=== PATIENT | female | born 1960 | race Hispanic/Latino ===

== ENCOUNTER 2017-06-25 11:19 | Emergency (ER) | payer OTHER ==
--- NOTE | 2017-06-25 12:06 | ER ---
Nurse's Notes [facility] Name: Sally Beebe Age: 57 yrs Sex: Female : 1960 Arrival Date: 06/25/2017 Time: 11:21 Bed 13 Private MD: Peng Sheldon B Diagnosis: Hypoglycemia, unspecified Presentation: 06/25 11:25 Presenting complaint: Patient states: Reports low sugar reading over past week after aj being put on insulin. Patient reports reading of 78 this morning, 112 now. Transition of care: patient was not received from another setting of care. Onset of symptoms was June 18, 2017. Care prior to arrival: None. 11:25 Method Of Arrival: Ambulatory aj 11:25 Acuity: ERICA 3 aj 12:04 Initial Sepsis Screen: Does the patient meet any 2 criteria? No. Patient's initial hj sepsis screen is negative. Does the patient have a suspected source of infection? No. Patient's initial sepsis screen is negative. Triage Assessment: 11:29 General: Appears in no apparent distress. comfortable, Behavior is calm, cooperative, aj appropriate for age. Pain: Denies pain. Neuro: Level of Consciousness is awake, alert, obeys commands, Oriented to person, place, time, situation, Appropriate for age. Respiratory: Airway is patent Respiratory effort is even, labored, Respiratory pattern is regular, symmetrical. Derm: Skin is intact, is healthy with good turgor, Skin is pink, warm \T\ dry. normal. Historical: - Allergies: 11:29 No Known Allergies; aj - Home Meds: 11:29 Tresiba FlexTouch U-200 200 unit/mL (3 mL) subcutaneous inpn [Active]; Victoza 3-Keaton aj 0.6 mg/0.1 mL (18 mg/3 mL) subcutaneous pnij 0.2 mL once daily [Active]; repaglinide 1 mg oral tab 1 tab 2 times per day [Active]; atorvastatin oral oral [Active]; Metformin Oral [Active]; - PMHx: 11:29 Diabetes - IDDM; Hyperlipidemia; aj - Immunization history:: Adult Immunizations up to date. - Social history:: Smoking status: Patient/guardian denies using tobacco. - Family history:: not pertinent. - Hospitalizations: : No recent hospitalization is reported. Screenin:02 Abuse screen: Denies threats or abuse. Denies injuries from another. Nutritional hj screening: No deficits noted. Tuberculosis screening: No symptoms or risk factors identified. Fall Risk None identified. Assessment: 12:06 General: Appears in no apparent distress. uncomfortable, Behavior is calm, cooperative, hj appropriate for age. Pain: Denies pain. Neuro: Level of Consciousness is awake, alert, obeys commands, Oriented to person, place, time, situation, Appropriate for age. Cardiovascular: Capillary refill < 3 seconds Patient's skin is warm and dry. Respiratory: Airway is patent Respiratory effort is even, unlabored, Respiratory pattern is regular, symmetrical. GI: No signs and/or symptoms were reported involving the gastrointestinal system. : No signs and/or symptoms were reported regarding the genitourinary system. EENT: No signs and/or symptoms were reported regarding the EENT system. Derm: No signs and/or symptoms reported regarding the dermatologic system. Musculoskeletal: No signs and/or symptoms reported regarding the musculoskeletal system. 12:07 Reassessment: pt left before signing the paper works;. hj Vital Signs: 11:29 BP 177 / 76; Pulse 72; Resp 18; Temp 98.2; Pulse Ox 100% on R/A; Weight 72.57 kg; aj Height 5 ft. 2 in. (157.48 cm); 11:29 Body Mass Index 29.26 (72.57 kg, 157.48 cm) aj ED Course: 11:21 Patient arrived in ED. mr 11:21 Peng Sheldon MD is Private Physician. mr 11:25 Ernesto Garcia MD is Attending Physician. rn 11:27 Triage completed. aj 11:29 Arm band placed on right wrist. Patient placed in an exam room. aj 11:31 David Serra, YASMIN is Primary Nurse. hj 12:03 No provider procedures requiring assistance completed. Patient did not have IV access hj during this emergency room visit. 12:04 Patient has correct armband on for positive identification. Placed in gown. Bed in low hj position. Call light in reach. Side rails up X 1. Administered Medications: No medications were administered Outcome: 12:03 Discharged to home ambulatory. hj 12:03 Condition: stable 12:03 Discharge instructions given to patient, family, Instructed on discharge instructions, follow up and referral plans. Demonstrated understanding of instructions, follow-up care. 12:05 Discharge ordered by MD. ugalde 12:15 Patient left the ED. hj Signatures: Brittany Brown RN RN aj Rivera, Maria mr Nieto, Roman, MD MD rn Joaquin, Henry, RN RN hj
--- NOTE | 2017-06-25 12:06 | EDPHYS ---
Physician Documentation [facility] Name: Sally Beebe Age: 57 yrs Sex: Female : 1960 Arrival Date: 06/25/2017 Time: 11:21 Bed 13 Private MD: Peng Sheldon B ED Physician Ernesto Garcia HPI: 06/25 11:57 This 57 yrs old Female presents to ER via Ambulatory with complaints of Low rn Blood Sugar. 11:57 Onset: The symptoms/episode began/occurred 1 week(s) ago. Associated signs and rn symptoms: Pertinent positives:. Current symptoms: In the emergency department the patient's symptoms have improved. The patient has experienced similar episodes in the past. Reports diabetic for 8 years, just started on insulin 1 week ago, reports intermittent low blood sugar, states no syncope but some sugars have gone down to 50s, told to start on 20u. . Historical: - Allergies: 11:29 No Known Allergies; aj - Home Meds: 11:29 Tresiba FlexTouch U-200 200 unit/mL (3 mL) subcutaneous inpn [Active]; Victoza 3-Keaton aj 0.6 mg/0.1 mL (18 mg/3 mL) subcutaneous pnij 0.2 mL once daily [Active]; repaglinide 1 mg oral tab 1 tab 2 times per day [Active]; atorvastatin oral oral [Active]; Metformin Oral [Active]; - PMHx: 11:29 Diabetes - IDDM; Hyperlipidemia; aj - Immunization history:: Adult Immunizations up to date. - Social history:: Smoking status: Patient/guardian denies using tobacco. - Family history:: not pertinent. - Hospitalizations: : No recent hospitalization is reported. ROS: 11:57 Constitutional: Negative for fever, chills, and weight loss, Eyes: Negative for injury, rn pain, redness, and discharge, Cardiovascular: Negative for chest pain, palpitations, and edema, Respiratory: Negative for shortness of breath, cough, wheezing, and pleuritic chest pain, Abdomen/GI: Negative for abdominal pain, nausea, vomiting, diarrhea, and constipation, MS/Extremity: Negative for injury and deformity, Skin: Negative for injury, rash, and discoloration, Neuro: Negative for headache, weakness, numbness, tingling, and seizure. Exam: 11:57 Constitutional: This is a well developed, well nourished patient who is awake, alert, rn and in no acute distress. Head/Face: Normocephalic, atraumatic. Neuro: Awake and alert, GCS 15, oriented to person, place, time, and situation. Cranial nerves II-XII grossly intact. Motor strength 5/5 in all extremities. Sensory grossly intact. Cerebellar exam normal. Normal gait. Vital Signs: 11:29 BP 177 / 76; Pulse 72; Resp 18; Temp 98.2; Pulse Ox 100% on R/A; Weight 72.57 kg; aj Height 5 ft. 2 in. (157.48 cm); 11:29 Body Mass Index 29.26 (72.57 kg, 157.48 cm) aj MDM: 11:25 Patient medically screened. rn 11:57 Differential diagnosis: hypoglycemic episode. Data reviewed: vital signs, nurses notes, [employer] test result(s), finger stick glucose, and as a result, I will discharge patient. Counseling: I had a detailed discussion with the patient and/or guardian regarding: the historical points, exam findings, and any diagnostic results supporting the discharge/admit diagnosis, lab results, the need for outpatient follow up, to return to the emergency department if symptoms worsen or persist or if there are any questions or concerns that arise at home. Special discussion: I discussed with the patient/guardian in detail that at this point there is no indication for admission to the hospital. It is understood, however, that if the symptoms persist or worsen the patient needs to return immediately for re-evaluation. Based on the history and exam findings, there is no indication for further emergent testing or inpatient evaluation. Endocrine. ED course: Recommended cutting insulin down to 10u and f/u with endocrine/pcp. 06/25 11:49 Order name: Urine Dipstick--Ancillary (enter results) bd Administered Medications: No medications were administered Disposition: 06/25/17 12:05 Discharged to Home as Medical Screen. Impression: Hypoglycemia, unspecified. - Condition is Stable. - Discharge Instructions: Hypoglycemia. - Medication Reconciliation Form, Thank You Letter, Antibiotic Education, Prescription Opioid Use form. - Follow up: Private Physician; When: As needed; Reason: Recheck today's complaints, Re-evaluation by your physician. - Problem is new. - Symptoms have improved. Signatures: Dispatcher [employer] EDBrittany Davis RN Ernesto Chávez MD MD rn Joaquin, Henry, RN RN hj Corrections: (The following items were deleted from the chart) 12:05 12:05 06/25/2017 12:05 Discharged to Home. Impression: Hypoglycemia, unspecified. rn Condition is Stable. Forms are Medication Reconciliation Form, Thank You Letter, Antibiotic Education, Prescription Opioid Use. Follow up: Private Physician; When: As needed; Reason: Recheck today's complaints, Re-evaluation by your physician. Problem is new. Symptoms have improved. rn 12:15 12:05 06/25/2017 12:05 Discharged to Home as Medical Screen. Impression: Hypoglycemia, hj unspecified. Condition is Stable. Discharge Instructions: Hypoglycemia. Forms are Medication Reconciliation Form, Thank You Letter, Antibiotic Education, Prescription Opioid Use. Follow up: Private Physician; When: As needed; Reason: Recheck today's complaints, Re-evaluation by your physician. Problem is new. Symptoms have improved. rn
[2017-06-25 12:20] VITALS: BP 177/76; TEMP 98.2; O2SAT 100
[2017-06-25 15:00] LABS: Urine Blood NEGATIVE (NEG); Urine Glucose NEGATIVE (NEG); Urine Protein NEGATIVE (NEG); Urine Specific Gravity 1.015 (1.005-1.030)
== END 2017-06-25 12:15 | disposition home or self-care (01) ==
LOC: ER 11:19
DX: E11.649 Type 2 diabetes mellitus with hypoglycemia without coma (principal); E78.5 Hyperlipidemia, unspecified; Z79.4 Long term (current) use of insulin
CPT/HCPCS: 81003; 99281

== ENCOUNTER 2018-01-22 17:07 | Emergency (ER) | payer OTHER ==
--- OUTSIDE RECORDS SUMMARY | 2018-01-22 17:10 | XMS REPORT | Clinical Summary ---
:1960 Author Organization [facility] Address [address] [place] [address] Care Team Providers Name Role Phone Flores Ross MD Primary Care Provider Allergies No Known Allergies Medications Medication Sig Dispensed Refills Start Date End Date Status cyanocobalamin, Take by mouth. 0 Active vitamin B-12, 2,500 mcg tablet betamethasone Apply topically 45 g 1 08/20/2017 Active valerate (VALISONE) 2 (two) times a 9 0.1 % day. creamIndications: Acute eczema VICTOZA 3-ALONDRA 0.6 Inject 0.3 mL 12 pen 1 11/30/2017 Active mg/0.1 mL (18 mg/3 (1.8 mg total) mL) pen under the skin injectorIndications: daily with Type 2 diabetes breakfast. mellitus without Inject 1.8 mg complication, once a day without long-term current use of insulin (HCC) metFORMIN XR Take 1 tablet 90 tablet 1 11/30/2017 Active (GLUCOPHAGE-XR) 500 (500 mg total) mg 24 hr by mouth daily tabletIndications: with breakfast. Type 2 diabetes 2 tablet twice mellitus without a day complication, without long-term current use of insulin (HCC) losartan (COZAAR) Take 1 tablet 90 tablet 1 11/30/2017 Active 100 MG (100 mg total) tabletIndications: by mouth daily. HTN (hypertension), 1/2 tablet once benign a day atorvastatin Take 1 tablet 90 tablet 1 11/30/2017 Active (LIPITOR) 80 MG (80 mg total) tabletIndications: by mouth Mixed hyperlipidemia nightly. 1 tablet once a day VICTOZA 3-ALONDRA 0.6 Inject 1.8 mg 3 05/19/2017 10/22/201 Discontinued mg/0.1 mL (18 mg/3 once a day 8 mL) pen injector metFORMIN XR Take by mouth. 1 06/03/2017 Discontinued (GLUCOPHAGE-XR) 500 2 tablet twice 8 mg 24 hr tablet a day repaglinide Take by mouth. 0 Discontinued (PRANDIN) 1 MG 1 tablet twice 8 tablet a day losartan (COZAAR) Take by mouth. 0 Discontinued 100 MG tablet 1/2 tablet once 8 a day atorvastatin Take by mouth. 0 Discontinued (LIPITOR) 80 MG 1 tablet once a 8 tablet day Active Problems Problem Noted Date Class 1 obesity due to excess calories with serious comorbidity and body 09/30 mass index (BMI) of 30.0 to 30.9 in adult H/O mammogram 2016 nle 09/19/2017 Atrophic gastritis without hemorrhage no H pylori 2016 09/19/2017 Colitis 08/07/2017 Type 2 diabetes mellitus without complication, without long-term current 07/17 use of insulin Mixed hyperlipidemia 07/17/2017 HTN (hypertension), benign 07/17/2017 Drug intolerance SGLT2 :yeast intolerance 07/17/2017 Family history of stroke Mother 07/17/2017 Family history of heart disease Mother 07/17/2017 Family history of breast cancer sister 07/17/2017 History of stroke 07/17/2017 Overview: Was on plavix ,now off ,was advised only to take ASA 81 mg H/O benign breast biopsy 07/17/2017 Status post colonoscopy 2016 Repeat in 10 years no polyps 07/17/2017 Tinnitus of both ears 07/17/2017 History of Helicobacter pylori infection 07/15/2017 Mixed conductive and sensorineural hearing loss of both ears 07/15/2017 Encounters Date Type Specialty Care Team Description 11/30/2017 Lab Lab Flores Ross, Annual physical exam 11/30/2017 Office Visit Internal Medicine Flores Ross, Annual physical exam (Primary Dx); Need for immunization against influenza; Type 2 diabetes mellitus without complication, without long-term current use of insulin (HCC); Mixed hyperlipidemia; HTN (hypertension), benign 09/30/2017 Office Visit Internal Medicine Flores Ross, Skin lesion of right lower extremity (Primary Dx); Class 1 obesity due to excess calories with serious comorbidity and body mass index (BMI) of 30.0 to 30.9 in adult; Type 2 diabetes mellitus without complication, without long-term current use of insulin; HTN (hypertension), benign; Mixed hyperlipidemia 08/26/2017 Orders Only Internal Medicine Travis Ulloa MD 08/20/2017 Office Visit Internal Medicine Vandana Flores, Type 2 diabetes mellitus without complication, without long-term current use of insulin (Primary Dx); HTN (hypertension), benign; Mixed hyperlipidemia; Acute eczema 08/14/2017 Orders Only Internal Medicine ProviderTravis MD 08/07/2017 Orders Only Internal Medicine Travis Ulloa, 07/15/2017 Lab Lab Vandana Flores, Type 2 diabetes mellitus with hyperglycemia, without long-term current use of insulin; HTN (hypertension), benign; Mixed hyperlipidemia 07/15/2017 Office Visit Internal Medicine Flores Ross, Type 2 diabetes mellitus with hyperglycemia, without long-term current use of insulin ( Primary Dx); Mixed hyperlipidemia; HTN (hypertension), benign; History of stroke 07/15/2017 Orders Only Internal Medicine ProviderTravis MD after 01/21/2017 Immunizations Name Dates Previously Given Next Due SD NEW PF 11/30/2017 Family History Medical History Relation Name Comments Lymphoma Father Heart disease Mother pacemaker Stroke Mother Breast cancer Sister Relation Name Status Comments Father Maternal Grandfather Maternal Grandmother Mother (Age 86) Paternal Grandfather Paternal Grandmother Sister Alive Social History Tobacco Use Types Packs/Day Years Used Date Never Smoker Smokeless Tobacco: Never Used Tobacco Cessation: Counseling Given: No Alcohol Use Drinks/Week oz/Week Comments No Sex Assigned at Date Recorded Not on file Job Start Date Occupation Industry Not on file Not on file Not on file Travel History Travel Start Travel End No recent travel history available. Last Filed Vital Signs Vital Sign Reading Time Taken Blood Pressure 118/75 11/30/2017 8:27 AM CDT Pulse 68 11/30/2017 8:27 AM CDT Temperature 36.8 C (98.2 F) 11/30/2017 8:27 AM CDT Respiratory Rate - - Oxygen Saturation 97% 11/30/2017 8:27 AM CDT Inhaled Oxygen Concentration - - Weight 78.1 kg (172 lb 3.2 oz) 11/30/2017 8:27 AM CDT Height 160 cm (5' 3") 11/30/2017 8:27 AM CDT Body Mass Index 30.5 11/30/2017 8:27 AM CDT Plan of Treatment Date Type Specialty Care Team Description 03/01/2018 Office Visit Internal Medicine Flores Ross MD [address] [facility] [address] [place] [address] [phone] Health Maintenance Due Date Last Done Comments DIABETIC RETINAL EYE EXAM 07/16/2017 07/16/2016 DIABETIC FOOT EXAM 07/15/2018 07/15/2017 URINE MICROALBUMIN 07/15/2018 07/15/2017, 07/15/2017 SHINGLES VACCINES (1 of 2) 07/20/2018 Postponed from 2009 (Insurance / Financial) BREAST CANCER SCREENING 12/10/2018 12/10/2016 CERVICAL CANCER SCREENING 10/11/2019 10/10/2016 COLON CANCER SCREENING 02/09/2025 02/09/2015 INFLUENZA VACCINE Completed 11/30/2017 Procedures Procedure Name Priority Date/Time Associated Diagnosis Comments LIPID PANEL Routine 11/30/2017 9:23 Annual physical exam Results for this AM CDT procedure are in the results section. HEMOGLOBIN A1C Routine 11/30/2017 9:23 Annual physical exam Results for this AM CDT procedure are in the results section. OBTAIN MEDICAL Routine 08/26/2017 RECORDS MISCELLANSOUS IMAGING Routine 08/14/2017 RESULT COLONOSCOPY-EXTERNAL Routine 08/07/2017 OBTAIN MEDICAL Routine 08/07/2017 RECORDS THYROID STIMULATING Routine 07/15/2017 12:24 Type 2 diabetes Results for this HORMONE PM CDT mellitus with procedure are in hyperglycemia, without the results long-term current use section. of insulin Mixed hyperlipidemia MICROALBUMIN / Routine 07/15/2017 12:24 Type 2 diabetes Results for this CREATININE URINE PM CDT mellitus with procedure are in RATIO hyperglycemia, without the results long-term current use section. of insulin HTN (hypertension), benign LIPID PANEL Routine 07/15/2017 12:24 Type 2 diabetes Results for this PM CDT mellitus with procedure are in hyperglycemia, without the results long-term current use section. of insulin Mixed hyperlipidemia HEMOGLOBIN A1C Routine 07/15/2017 12:24 Type 2 diabetes Results for this PM CDT mellitus with procedure are in hyperglycemia, without the results long-term current use section. of insulin COMPREHENSIVE Routine 07/15/2017 12:24 Type 2 diabetes Results for this METABOLIC PANEL PM CDT mellitus with procedure are in hyperglycemia, without the results long-term current use section. of insulin HTN (hypertension), benign CBC HEMOGRAM Routine 07/15/2017 12:24 Type 2 diabetes Results for this PM CDT mellitus with procedure are in hyperglycemia, without the results long-term current use section. of insulin HTN (hypertension), benign OBTAIN MEDICAL Routine 07/15/2017 RECORDS after 01/21/2017 Results Hemoglobin A1c (11/30/2017 9:23 AM CDT)Only the most recent of2 resultswithin the time period is included. Hemoglobin A1C 7.2 (H) <5.7 % of total [facility] Comment: Hgb [place] For someone without known diabetes, a hemoglobin A1c value of 6.5% or greater indicates that they may have diabetes and this should be confirmed with a follow-up test. For someone with known diabetes, a value <7% indicates that their diabetes is well controlled and a value greater than or equal to 7% indicates suboptimal control. A1c targets should be individualized based on duration of diabetes, age, comorbid conditions, and other considerations. Currently, no consensus exists regarding use of hemoglobin A1c for diagnosis of diabetes for children. Specimen Blood Resulting Agency Comment Performing Organization Information: Site ID: [id number] Name: [facility] Lab Address: [address] [place] [phone] Director: Pippa Sinha Performing Organization Address City/State/Zipcode Phone Number [facility] [address] [address] Lipid panel (11/30/2017 9:23 AM CDT)Only the most recent of2 resultswithin the time period is included. Cholesterol, total 167 <200 mg/dL [facility] [place] HDL cholesterol 53 >50 mg/dL [facility] [place] Triglycerides 110 <150 mg/dL [facility] [place] LDL cholesterol 93 mg/dL (calc) [facility] calculated Comment: [place] Reference range: <100 Desirable range <100 mg/dL for primary prevention; <70 mg/dL for patients with CHD or diabetic patients with > or=2 CHD risk factors. LDL-C is now calculated using the Santana-Aguirre calculation, which is a validated novel method providing better accuracy than the Friedewald equation in the estimation of LDL-C. Santana SS et al. JUDSON. 2013;310(19): 7460-2832 (http://education.[employer]/faq/SJC098) Cholesterol/HDL ratio 3.2 <5.0 (calc) [facility] [place] Non-HDL cholesterol 114 <130 mg/dL [facility] Comment: (calc) [place] For patients with diabetes plus 1 major ASCVD risk factor, treating to a non-HDL-C goal of <100 mg/dL (LDL-C of <70 mg/dL) is considered a therapeutic option. Specimen Blood Resulting Agency Comment Performing Organization Information: Site ID: [id number] Name: [facility] Lab Address: [address] [place] [phone] Director: Pippa Sinha Performing Organization Address City/State/Zipcode Phone Number [facility] [address] [place], [place] [id number] Obtain medical records (08/26/2017)Only the most recent of3 resultswithin the time period is included. Narrative Performed At Miscellaneous Imaging Result (08/14/2017) Specimen Blood Narrative Performed At COLONOSCOPY-EXTERNAL (08/07/2017) Narrative Performed At Microalbumin / creatinine urine ratio (07/15/2017 12:24 PM CDT) Creatinine, urine, 114 20 - 320 mg/dL [facility] Microalbumin, urine <0.2 See Note: mg/dL [facility] Comment: [place] Reference Range: Reference Range Not established Microalbumin/creatini NOTE <30 mcg/mg creat [facility] ne ratio Comment: [place] The microalbumin value is less than 0.2 mg/dL therefore we are unable to calculate excretion and/or creatinine ratio. The ADA defines abnormalities in albumin excretion as follows: Category Result (mcg/mg creatinine) Normal<30 Microalbuminuria 30-299 Clinical albuminuria > YR=164 The ADA recommends that at least two of three specimens collected within a 3-6 month period be abnormal before considering a patient to be within a diagnostic category. Specimen Blood Resulting Agency Comment Performing Organization Information: Site ID: [id number] Name: [facility] Lab Address: [address] [place] [phone] Director: Pippa Sinha Performing Organization Address City/[facility] [email or web address] Phone [place] [address] CBC hemogram (07/15/2017 12:24 PM CDT) WBC 5.2 3.8 - 10.8 Thousand/uL [facility] [place] RBC 4.34 3.80 - 5.10 Million/uL [facility] [place] HGB 14.0 11.7 - 15.5 g/dL [facility] [place] HCT 40.5 35.0 - 45.0 % [facility] [place] MCV 93.3 80.0 - 100.0 fL [facility] [place] MCH 32.3 27.0 - 33.0 pg [facility] [place] MCHC 34.6 32.0 - 36.0 g/dL [facility] [place] RDW 12.7 11.0 - 15.0 % [facility] [place] Platelet count 267 140 - 400 Thousand/uL [facility] [place] MPV 10.3 7.5 - 12.5 fL [facility] [place] Specimen Blood Resulting Agency Comment Performing Organization Information: Site ID: [id number] Name: [facility] Lab Address: [address] [place] [phone] Director: Pippa Sinha Performing Organization Address [facility] Phone [place] [address] Thyroid stimulating hormone (07/15/2017 12:24 PM CDT) TSH 1.90 0.40 - 4.50 mIU/L [facility] [place] Specimen Blood Resulting Agency Comment Performing Organization Information: Site ID: [id number] Name: [facility] Address: [address] [place] [phone] Director: Pippa Sinha Performing Organization Address [facility] [email or web address] Phone [place] [address] Comprehensive metabolic panel (07/15/2017 12:24 PM CDT) Glucose 95 65 - 99 mg/dL [facility] Comment: [place] Fasting reference interval BUN, whole blood 13 7 - 25 mg/dL [facility] [place] Creatinine 0.58 0.50 - 1.05 [facility] Comment: mg/dL [place] For patients >49 years of age, the reference limit for Creatinine is approximately 13% higher for people identified as -Luxembourger. EGFR Non-Afr. Luxembourger 102 > OR=60 [facility] mL/min/1.73m2 [place] EGFR 118 > OR=60 [facility] mL/min/1.73m2 [place] BUN/creatinine ratio NOT APPLICABLE 6 - 22 (calc) [facility] [place] Sodium 141 135 - 146 mmol/L [facility] [place] Potassium 4.7 3.5 - 5.3 mmol/L [facility] [place] Chloride 103 98 - 110 mmol/L [facility] [place] CO2 30 20 - 31 mmol/L [facility] [place] Calcium 9.6 8.6 - 10.4 mg/dL [facility] [place] Protein 6.8 6.1 - 8.1 g/dL [facility] [place] Albumin, S 4.4 3.6 - 5.1 g/dL [facility] [place] Globulin, total 2.4 1.9 - 3.7 g/dL [facility] (calc) [place] Albumin/globulin ratio 1.8 1.0 - 2.5 (calc) [facility] Total bilirubin 0.5 0.2 - 1.2 mg/dL [facility] [place] Alkaline phosphatase 113 33 - 130 U/L [facility] AST 23 10 - 35 U/L [facility] [place] ALT 39 (H) 6 - 29 U/L [facility] [place] Specimen Blood Resulting Agency Comment Performing Organization Information: Site ID: [id number] Name: [facility] Address: [address] [place] [phone] Director: Pippa Sinha Performing Organization Address City/State/Zipcode Phone Number [facility] [address] [place] [phone] after 01/21/2017 Insurance Payer Benefit Plan / Group Subscriber ID Type Phone Address AETNA AETNA HMO,POS,EPO, MC/EC xxxxxxxxx HMO Advance Directives Patient has advance care planning documents on file. For more information, please contact:[place] [address]
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
[2018-01-22] MEDS ORDERED: FENTANYL CITR 100 MCG/2 ML ONE (18:12)
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
[2018-01-22] MEDS ORDERED: IBUPROFEN 200 MG TAB PO ONE (18:55)
[2018-01-22] MEDS ORDERED: CYCLOBENZAPRINE 10 MG TAB ONE (18:55)
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
[2018-01-22] MEDS ORDERED: HYDROCODONE/APAP 10/325 TAB ONE (19:23)
[2018-01-22 22:59] VITALS: TEMP 98
[2018-01-22 23:04] VITALS: BP 158/78; O2SAT 98
== END 2018-01-22 20:03 | disposition home or self-care (01) ==
LOC: ER 17:07
PROC: 2W3DX1Z Immobilization of Left Lower Arm using Splint (ICD-10-PCS; principal; 2018-01-22)
DX: S52.572A Other intraarticular fracture of lower end of left radius, initial encounter for closed fracture (principal); S52.612A Displaced fracture of left ulna styloid process, initial encounter for closed fracture; S39.012A Strain of muscle, fascia and tendon of lower back, initial encounter; S93.402A Sprain of unspecified ligament of left ankle, initial encounter; S90.32XA Contusion of left foot, initial encounter; V47.5XXA Car driver injured in collision with fixed or stationary object in traffic accident, initial encounter; Z79.82 Long term (current) use of aspirin; Z79.4 Long term (current) use of insulin; E78.5 Hyperlipidemia, unspecified; E11.9 Type 2 diabetes mellitus without complications
CPT/HCPCS: 70450; 72125; 96374; 99285; J3010

== ENCOUNTER 2018-01-26 14:36 | Emergency (ER) | payer OTHER ==
--- OUTSIDE RECORDS SUMMARY | 2018-01-26 14:39 | XMS REPORT | Clinical Summary ---
:1960 Author Organization [facility] Address [address] [place] [address] Care Team Providers Name Role Phone Flores [...] Orders Only Internal Medicine ProviderTravis MD after 01/25/2017 Immunizations Name Dates Previously Given Next Due [...] Office Visit Internal Medicine Flores Ross MD [address] [facility] [address] [place] [address] [phone] Health Maintenance Due Date Last Done Comments [...] benign OBTAIN MEDICAL Routine 07/15/2017 RECORDS after 01/25/2017 Results Hemoglobin A1c (11/30/2017 9:23 AM CDT)Only the most recent of2 resultswithin the time period is included. Hemoglobin A1C 7.2 (H) <5.7 % of total [facility] Comment: Hgb RHINEBECK For someone without known diabetes, a hemoglobin [...] Performing Organization Information: Site ID: [id number] Name: [facility] Address: [address] [place] [phone] Director: Pippa Sinha Performing Organization Address City/State/Zipcode Phone Number [employer] [address] [address] Lipid panel (11/30/2017 9:23 AM CDT)Only the most recent of2 resultswithin the time period is included. Cholesterol, total 167 <200 mg/dL [facility] [place] HDL cholesterol 53 >50 mg/dL [facility] Triglycerides 110 <150 mg/dL [facility] [place] LDL cholesterol 93 mg/dL (calc) [facility] calculated Comment: RHINEBECK Reference range: <100 Desirable range <100 mg/dL for primary prevention; <70 mg/dL for patients with CHD or diabetic patients with > or=2 CHD risk factors. LDL-C is now calculated using the Santana-Aguirre calculation, which is a validated novel method providing better accuracy than the Friedewald equation in the estimation of LDL-C. Santana SS et al. JUDSON. 2013;310(19): 8975-6926 (http://education.Kite/faq/MDV337) Cholesterol/HDL ratio 3.2 <5.0 (calc) [facility] [place] Non-HDL cholesterol 114 <130 mg/dL [facility] Comment: (calc) RH[facility]ECK For patients with diabetes plus 1 major ASCVD risk factor, treating to a non-HDL-C goal of <100 mg/dL (LDL-C of <70 mg/dL) is considered a therapeutic option. Specimen Blood Resulting Agency Comment Performing Organization Information: Site ID: [id number] Name: [facility] Address: [address] [place] [phone] Director: Pippa Sinha Performing Organization Address City/State/Zipcode Phone Number [facility] [[email or web address]] [facility] [address] [place], [place] [id number] Obtain medical records (08/26/2017)Only the most recent of3 resultswithin the time period is included. Narrative Performed At Miscellaneous Imaging Result (08/14/2017) Specimen Blood Narrative Performed At COLONOSCOPY-EXTERNAL (08/07/2017) Narrative Performed At Microalbumin / creatinine urine ratio (07/15/2017 12:24 PM CDT) Creatinine, urine, 114 20 - 320 mg/dL [facility] Microalbumin, urine <0.2 See Note: mg/dL [facility] Comment: RHINEBECK Reference Range: Reference Range Not established Microalbumin/creatini NOTE <30 mcg/mg creat [facility] ne ratio Comment: RHINEBECK The microalbumin value is less than 0.2 mg/dL therefore we are unable to calculate excretion and/or creatinine ratio. The ADA defines abnormalities in albumin excretion as follows: Category Result (mcg/mg creatinine) Normal<30 Microalbuminuria 30-299 Clinical albuminuria > US=167 The ADA recommends that at least two of three specimens collected within a 3-6 month period be abnormal before considering a patient to be within a diagnostic category. Specimen Blood Resulting Agency Comment Performing Organization Information: Site ID: [id number] Name: [facility] Address: [address] [place] [id number] Director: Pippa Sinha Performing Organization Address City/[facility] Phone Number [employer] [place] [address] CBC hemogram (07/15/2017 12:24 PM CDT) WBC 5.2 3.8 - 10.8 Thousand/uL [facility] [place] RBC 4.34 3.80 - 5.10 Million/uL [facility] HGB 14.0 11.7 - 15.5 g/dL [facility] [place] HCT 40.5 35.0 - 45.0 % [facility] MCV 93.3 80.0 - 100.0 fL [facility] MCH 32.3 27.0 - 33.0 pg [facility] MCHC 34.6 32.0 - 36.0 g/dL [facility] RDW 12.7 11.0 - 15.0 % [facility] Platelet count 267 140 - 400 Thousand/uL [facility] [place] MPV 10.3 7.5 - 12.5 fL [facility] Specimen Blood Resulting Agency Comment Performing Organization Information: Site ID: [id number] Name: [facility] Address: [address] [place] [phone] Director: Pippa Sinha Performing Organization Address [facility] Phone Number [employer] [place] [address] Thyroid stimulating hormone (07/15/2017 12:24 PM CDT) TSH 1.90 0.40 - 4.50 mIU/L [facility] Specimen Blood Resulting Agency Comment Performing Organization Information: Site ID: [id number] Name: [facility] Address: [address] [place] [phone] Director: Pippa Sinha Performing Organization Address [facility] Phone Number [employer] [place] [address] Comprehensive metabolic panel (07/15/2017 12:24 PM CDT) Glucose 95 65 - 99 mg/dL [facility] Comment: RHINEBECK Fasting reference interval BUN, whole blood 13 7 - 25 mg/dL [facility] Creatinine 0.58 0.50 - 1.05 [facility] Comment: mg/dL RH[facility]K For patients >49 years of age, the reference limit for Creatinine is approximately 13% higher for people identified as -Guyanese. EGFR Non-Afr. Guyanese 102 > OR=60 [facility] mL/min/1.73m2 RH[place]K EGFR 118 > OR=60 [facility] mL/min/1.73m2 [place] BUN/creatinine ratio NOT APPLICABLE 6 - 22 (calc) [facility] Sodium 141 135 - 146 mmol/L [facility] [place] Potassium 4.7 3.5 - 5.3 mmol/L [facility] Chloride 103 98 - 110 mmol/L [facility] [place] CO2 30 20 - 31 mmol/L [facility] [place] Calcium 9.6 8.6 - 10.4 mg/dL [facility] [place] Protein 6.8 6.1 - 8.1 g/dL [facility] [place] Albumin, S 4.4 3.6 - 5.1 g/dL [facility] Globulin, total 2.4 1.9 - 3.7 g/dL [facility] (calc) [place] Albumin/globulin ratio 1.8 1.0 - 2.5 (calc) [facility] Total bilirubin 0.5 0.2 - 1.2 mg/dL [facility] Alkaline phosphatase 113 33 - 130 U/L [facility] AST 23 10 - 35 U/L [facility] ALT 39 (H) 6 - 29 U/L [facility] Specimen Blood Resulting Agency Comment Performing Organization Information: Site ID: [id number] Name: [facility] Address: [address] [place] [phone] Director: Pippa Sinha Performing Organization Address City/State/Zipcode Phone Number [facility] [address] [place] [phone] after 01/25/2017 Insurance Payer Benefit Plan / Group Subscriber ID Type Phone Address AETNA AETNA HMO,POS,EPO, MC/EC xxxxxxxxx HMO Advance Directives Patient has advance care planning documents on file. For more information, please contact:[place] [address]
[2018-01-26] MEDS ORDERED: HYDROCODONE/APAP 5/325 MG TAB ONE (15:19)
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
--- NOTE | 2018-01-26 16:52 | ER ---
Nurse's Notes [facility] Name: Sally Beebe Age: 58 yrs Sex: Female : 1960 Arrival Date: 01/26/2018 Time: 14:38 Bed 7 Private MD: Peng Sheldon B Diagnosis: Acute left Wrist fracture;Mild L1 compression deformity Presentation: 01/26 14:47 Presenting complaint: Patient states: my L arm is numb, tingling, and a little painful ch inside my splint. it started yesterday around 1500. 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 pt instructed to elevate the wrist. Transition of care: patient was not received from another setting of care. Onset of symptoms was January 25, 2018 at 15:00. Risk Assessment: Do you want to hurt yourself or someone else? Patient reports no desire to harm self or others. Initial Sepsis Screen: Does the patient meet any 2 criteria? No. Patient's initial sepsis screen is negative. Does the patient have a suspected source of infection? No. Patient's initial sepsis screen is negative. Care prior to arrival: Medication(s) given: naprosen. 14:47 Method Of Arrival: Ambulatory 14:47 Acuity: ERICA 5 ch Triage Assessment: 14:49 General: Appears in no apparent distress. comfortable, Behavior is calm, cooperative, ch appropriate for age. Pain: Complains of pain in dorsal aspect of left forearm, left wrist and palmar aspect of left forearm Pain currently is 6 out of 10 on a pain scale. 14:49 Musculoskeletal: Capillary refill pt director of event marketing is 3 seconds in L fingers, pt has rom. skin is ch the same color as on the R hand. does not appear dusky, skin is swollen but not taut. Historical: - Allergies: 14:49 No Known Allergies; ch - Home Meds: 14:49 aspirin 81 mg Oral chew 1 tab once daily [Active]; atorvastatin Oral [Active]; ch Metformin Oral [Active]; repaglinide 1 mg Oral tab 1 tab 2 times per day [Active]; Tresiba FlexTouch U-200 200 unit/mL (3 mL) subcutaneous inpn [Active]; Victoza 3-Keaton 0.6 mg/0.1 mL (18 mg/3 mL) subcutaneous pnij 0.2 mL once daily [Active]; - PMHx: 14:49 Diabetes - IDDM; Hyperlipidemia; ch - Immunization history:: Adult Immunizations up to date, Flu vaccine is up to date. - Social history:: Smoking status: Patient/guardian denies using tobacco, Patient/guardian denies using alcohol, street drugs. - Ebola Screening: : Patient negative for fever greater than or equal to 101.5 degrees Fahrenheit, and additional compatible Ebola Virus Disease symptoms Patient denies exposure to infectious person Patient denies travel to an Ebola-affected area in the 21 days before illness onset No symptoms or risks identified at this time. - Family history:: not pertinent. - Hospitalizations: : No recent hospitalization is reported. Screenin:32 Abuse screen: Denies threats or abuse. Nutritional screening: No deficits noted. aa5 Tuberculosis screening: No symptoms or risk factors identified. Fall Risk None identified. Assessment: 14:50 General: Appears uncomfortable, Behavior is calm, cooperative. Pain: Complains of pain aa5 in left arm. Pt also reports pain to sacral area, pt states "it hurts to sit" Pain does not radiate. Pain currently is 6 out of 10 on a pain scale. Quality of pain is described as aching, numb, Is continuous. Neuro: Level of Consciousness is awake, alert, obeys commands, Oriented to person, place, time, situation. Cardiovascular: Heart tones S1 S2 present Capillary refill < 3 seconds is brisk in bilateral fingers Pulses are 3+ in left radial artery Rhythm is regular. Respiratory: Airway is patent Respiratory effort is even, unlabored, Respiratory pattern is regular, symmetrical. GI: No signs and/or symptoms were reported involving the gastrointestinal system. : No signs and/or symptoms were reported regarding the genitourinary system. EENT: No signs and/or symptoms were reported regarding the EENT system. Derm: Skin is pink, warm \\T\\ dry. Musculoskeletal: Splint to left arm was removed by Dr. Davidson. Pt currently resting left forearm on her abdomen. Swelling noted to left wrist, dorsum of left hands, and left fingers. Bruising that is green noted to left wrist. 15:20 Reassessment: Orthoglass splint applied to left arm by Hernan Florez [facility] and pa. aa5 Sling applied to left arm, pt states feeling better, currently denies numbness to left arm. Capillary refill < 3 seconds to left fingers before and after application of splint, pt is able to move fingers after splint application. . 16:32 Reassessment: Patient is alert, oriented x 3, equal unlabored respirations, skin aa5 warm/dry/pink. Patient states feeling better. Pt denies numbness to left arm. Awaiting x-ray results. . Pain: Pain currently is 3 out of 10 on a pain scale. Vital Signs: 14:49 BP 158 / 74; Pulse 79; Resp 16; Temp 98.1; Pulse Ox 99% on R/A; Weight 73.48 kg; Height 5 ft. 3 in. (160.02 cm); Pain 6/10; 16:32 BP 122 / 74; Pulse 74; Resp 18 S; Pulse Ox 96% on R/A; Pain 3/10; aa5 14:49 Body Mass Index 28.70 (73.48 kg, 160.02 cm) ED Course: 14:38 Patient arrived in ED. sb2 14:39 Peng Sheldon MD is Private Physician. sb2 14:40 Blake Davidson MD is Attending Physician. wa 14:48 Triage completed. 14:49 Arm band placed on left wrist. Patient placed in an exam room, on a stretcher. 14:50 Letty Colby, YASMIN is Primary Nurse. aa5 14:50 Patient has correct armband on for positive identification. Bed in low position. Call aa5 light in reach. Side rails up X 1. Adult w/ patient. 15:23 Orthoglass splint: Sugar tong splint applied on left arm. Radial pulse present and jb1 within normal limits before and after application of splint. Capillary refill was two seconds before and after application of splint. 15:32 No provider procedures requiring assistance completed. aa5 16:13 Pelvis XRAY In Process Unspecified. EDMS 16:13 Lumbar Spine (3 Views) XRAY In Process Unspecified. EDMS 17:45 Patient did not have IV access during this emergency room visit. ph Administered Medications: 15:14 Drug: [place] 5 mg-325 mg 1 tabs Route: PO; aa5 16:30 Follow up: Response: No adverse reaction aa5 Outcome: 16:52 Discharge ordered by . wa 17:48 Patient left the ED. aa5 17:48 Discharged to home ambulatory. ph 17:48 Condition: good 17:48 Discharge instructions given to patient, Instructed on discharge instructions, follow up and referral plans. medication usage, Demonstrated understanding of instructions, follow-up care, medications, Prescriptions given X 1. Signatures: Dispatcher [employer] EDMS Hernan Florez jb1 Radha Perez RN RN Letty Sweeney RN RN aa5 Laurie Becerril RN RN ph Appiah, William, MD MD wa Billeau, Sheri sb2 Corrections: (The following items were deleted from the chart) : 14:40 General: Appears uncomfortable, Behavior is calm, cooperative, aa5 aa5 : 14:40 Pain: Complains of pain in left arm Pain does not radiate. Pain currently is 6 aa5 out of 10 on a pain scale. Quality of pain is described as aching, numb, Is continuous, aa5 : 14:40 Neuro: Level of Consciousness is awake, alert, obeys commands, Oriented to aa5 person, place, time, situation, aa5 : 14:40 Cardiovascular: Heart tones S1 S2 present Capillary refill < 3 seconds is brisk aa5 in bilateral fingers Pulses are 3+ in left radial artery Rhythm is regular aa5 : 14:40 Respiratory: Airway is patent Respiratory effort is even, unlabored, Respiratory aa5 pattern is regular, symmetrical, aa5 : 14:40 GI: No signs and/or symptoms were reported involving the gastrointestinal system. aa5 aa5 : 14:40 : No signs and/or symptoms were reported regarding the genitourinary system. aa5aa5 : 14:40 EENT: No signs and/or symptoms were reported regarding the EENT system. aa5 aa5 : 14:40 Derm: Skin is pink, warm \\T\\ dry. aa5 aa5 : 14:40 Musculoskeletal: Splint to left arm was removed by Dr. Davidson. Pt currently aa5 resting left forearm on her abdomen. Swelling noted to left wrist, dorsum of left hands, and left fingers. Bruising that is green noted to left wrist. aa5 15:32 14:50 Pain: Complains of pain in left arm Pain does not radiate. Pain currently is 6 aa5 out of 10 on a pain scale. Quality of pain is described as aching, numb, Is continuous, aa5
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
[2018-01-26 17:16] LABS: Urine Blood NEGATIVE (NEG); Urine Glucose NEGATIVE (NEG); Urine Protein NEGATIVE (NEG); Urine pH 6.5 (5.0-7.0)
[2018-01-26 17:57] VITALS: TEMP 98.1
[2018-01-26 17:59] VITALS: BP 122/74; O2SAT 96
== END 2018-01-26 17:48 | disposition home or self-care (01) ==
LOC: ER 14:36
PROC: 2W3DX1Z Immobilization of Left Lower Arm using Splint (ICD-10-PCS; principal; 2018-01-26)
DX: S62.102G Fracture of unspecified carpal bone, left wrist, subsequent encounter for fracture with delayed healing (principal); M43.9 Deforming dorsopathy, unspecified; V89.2XXD Person injured in unspecified motor-vehicle accident, traffic, subsequent encounter; Z79.82 Long term (current) use of aspirin; Z79.4 Long term (current) use of insulin; E11.9 Type 2 diabetes mellitus without complications; E78.5 Hyperlipidemia, unspecified
CPT/HCPCS: 72100; 72170; 81003; 99284